=== PATIENT | male | born 1990 | race African-American/Black ===

== ENCOUNTER 2020-02-20 08:55 | Emergency (ER) | payer MEDICAID ==
[~2020-02-20] VITALS: Ht 160 cm; Wt 82.0 kg
[2020-02-20] MEDS ORDERED: SODIUM CHLORIDE 0.9% 1,000 ML IV ONE ×2 (09:12→11:00)
[2020-02-20] MEDS ORDERED: LORAZEPAM 2MG/ML CPJ IV ONE ×2 (09:15→12:15)
[2020-02-20 09:35] LABS: HEMATOCRIT. 44.4 % (42.0-52.0); HEMOGLOBIN. 14.9 g/dL (14.0-18.0); MEAN CORPUSCULAR HEMOGLOBIN 29.5 pg (28.0-32.0); MEAN CORPUSCULAR VOLUME 87.9 fL (80.0-94.0); MEAN PLATELET VOLUME 7.4 fl (7.4-10.4); PLATELET 317 x1000/uL (130-400); RED BLOOD CELL COUNT 5.05 mill/uL (4.7-6.1); RED CELL DISTRIBUTION WIDTH 15.2 % (11.6-14.6)
[2020-02-20 09:37] LABS: CHLORIDE 100 mEq/L (98-107)
[2020-02-20 09:41] LABS: INR 1.1; PROTHROMBIN TIME 11.3 sec (9.6-11.0)
[2020-02-20 09:42] LABS: ETHANOL BLOOD < 10 mg/dL
[2020-02-20 10:22] LABS: PLATELET ESTIMATE NORMAL
[2020-02-20] MEDS ORDERED: LORAZEPAM 1MG TABLET PO ONE ×2 (10:30→14:00)
[2020-02-20] MEDS ORDERED: ONDANSETRON HCL 4MG/2ML INJ IV ONE ×2 (11:45→12:15)
[2020-02-20 12:48] LABS: CREATINE KINASE 224 IU/L (39-308)
[2020-02-20 18:57] VITALS: BP 125/80
== END 2020-02-20 19:16 | disposition home or self-care (01) ==
LOC: ER 08:55
DX: R07.89 Other chest pain (principal); R00.2 Palpitations; F15.10 Other stimulant abuse, uncomplicated
CPT/HCPCS: 36415; 80053; 80320; 82550; 84484; 85025; 85610; 93005; 96361; 96374; 96375; 96376; 99285; J2060; J2405; J7030; G0480

== ENCOUNTER 2020-02-25 12:53 | Emergency (ER) | payer MEDICAID ==
[~2020-02-25] VITALS: Ht 160 cm; Wt 84.0 kg
[2020-02-25 15:13] LABS: BASOPHILS % 0.8 % (0.0-2.0); EOSINOPHILS % 3.5 % (0.0-5.0); HEMATOCRIT. 38.7 % (42.0-52.0); LYMPHOCYTES % 21.9 % (20.0-50.0); MEAN CORPUSCULAR HEMOGLOBIN 29.7 pg (28.0-32.0); MEAN CORPUSCULAR VOLUME 88.6 fL (80.0-94.0); MEAN PLATELET VOLUME 7.3 fl (7.4-10.4); MONOCYTES % 8.9 % (2.0-8.0); NEUTROPHILS % 64.9 % (40.0-76.0); PLATELET 252 x1000/uL (130-400); RED BLOOD CELL COUNT 4.37 mill/uL (4.7-6.1)
[2020-02-25 15:19] LABS: CHLORIDE 108 mEq/L (98-107)
[2020-02-25 15:34] VITALS: BP 114/66
== END 2020-02-25 16:16 | disposition home or self-care (01) ==
LOC: ER 12:53
DX: R00.2 Palpitations (principal); F15.10 Other stimulant abuse, uncomplicated
CPT/HCPCS: 36415; 71045; 80053; 85025; 93005; 99285

== ENCOUNTER 2020-04-19 08:05 | Emergency (ER) | payer MEDICAID ==
[~2020-04-19] VITALS: Ht 160 cm; Wt 78.0 kg
[2020-04-19 08:06] VITALS: BP 117/66
== END 2020-04-19 08:47 | disposition home or self-care (01) ==
LOC: ER 08:35
DX: F41.9 Anxiety disorder, unspecified (principal); R00.2 Palpitations; F15.10 Other stimulant abuse, uncomplicated
CPT/HCPCS: 93005; 99283